=== PATIENT | male | born 1950 | race Caucasian/White ===

== ENCOUNTER 2019-01-15 17:47 | Emergency (ER) | payer MEDICARE ==
--- NOTE | 2019-01-15 17:53 | UC ---
HPI Febrile Illness - HPI Summary HPI Summary: Patient is a 68 year old male, who present today to the urgent care with fever for past 6 days. 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 Next 2 days he was completely asymptomatic and developed some lesions on his chin on Wednesday and had a MAXIMUM TEMPERATURE of 100.9F yesterday. He also reports having fatigue and muscle aches. Denies any sore throat or ear problems. Denies any cough chest pain or shortness of breath . Denies any abdominal pain , nausea or vomiting , diarrhea or constipation. No urinary symptoms. He has been outside a lot and at the camp and he does not recall any specific tick bite and he does get checked for skin time to time by his as well. Lesions are mainly noted on the chin and one on the left corner of the mouth. There are 4 lesions which have not changed in size, some itching and minimal pain. No drainage reported. He has been using hydrocortisone topically without any improvement - History of Current Complaint Time Seen by Provider: 01/15/19 17:51 Hx Obtained From: Patient - Allergy/Home Medications Allergies/Adverse Reactions: Allergies Allergy/AdvReac Type Severity Reaction Status Date / Time amoxicillin Allergy See Comment Verified 01/15/19 18:01 Home Medications: Home Medications Calcitriol 100 gm TP 01/15/19 [History] Ibuprofen 200 mg PO 01/15/19 [History] Sildenafil Citrate [Viagra] 100 mg PO EVERY OTHER DAY 01/15/19 [History Confirmed 01/15/19] PMH/Surg Hx/FS Hx/Imm Hx - Additional Past Medical History Additional PMH: Past Medical History : Psoriasis, prostrate cancer Past Surgical History: Prostatectomy in August 2018 Family History : non contributory Social History : Weekly alcohol, non smoker, no drug use. 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 Previously Healthy: Yes - Family History Known Family History: Positive: Non-Contributory Review of Systems All Other Systems Reviewed And Are Negative: Yes Constitutional: Positive: Fever, Fatigue Skin: Positive: Rash - On the chin Eyes: Positive: Negative ENT: Positive: Negative Respiratory: Positive: Negative Cardiovascular: Positive: Negative Gastrointestinal: Positive: Negative Genitourinary: Positive: Negative Motor: Positive: Negative Neurovascular: Positive: Negative Musculoskeletal: Positive: Negative Neurological: Positive: Negative Is Patient Immunocompromised?: No Physical Exam - Summary Physical Exam Summary: Physical Exam: Const: Appears well. No signs of apparent distress present. Alert and oriented x 3. Musculo: Walks with a normal gait. Head/Face: Atraumatic, normocephalic on inspection. Eyes: EOMI and PERRLA in both eyes. Conjunctivae clear. No discharge noted ENT: Hearing normal, TM normal appearing bilaterally, non bulging , non erythematous . No tenderness on palpation / manipulation of Tragus. No mastoid tenderness. No tenderness to palpation on maxillary and frontal sinus. mild pharyngeal erythema but no exudates . Uvula is midline. No cervical or submandibular lymphadenopathy noted. Respiratory: Respirations are unlabored. Lungs clear to auscultation bilaterally, no wheezing , rhonchi or rales noted . CVS: Regular rate and Rhythm, S1S2 normal , no murmurs identified. Extremities: Peripheral circulation is grossly normal. Pulses 2+ Abdomen : Soft non tender , nondistended , Bowel sounds present . No guarding , rebound tenderness or rigidity noted. Skin: He does have psoriasis lesions on the knee. Lesion on chin: Erythematous , minimal tender, 4 mainly noted on the chin and one on the left corner of the mouth. measuring upto 1 cm . No drainage noted but there is honey crusting noted. Neuro: Cranial nerves II to XII intact, motor and sensory intact. DTR Intact bilaterally. Mood is normal. Affect is normal. GCS: 15 Triage Information Reviewed: Yes Vital Signs Reviewed: Yes Course/Dx - Course Course Of Treatment: During the visit today, we obtained lab work - blood work and cultures including viral and the Gram stain/culture of the lesion at the corner of his mouth on the left side. Lesions can be secondary to impetigo versus herpetic lesions . Fever can be due to viral illness. We'll also test for Lyme disease. Plan to presumptively treat him with Bactrim and acyclovir . He was given the first dose of both the medications here and rest was prescribed to the pharmacy.. He will be informed of any lab results that are abnormal. He'll follow with his primary care doctor in 2-3 days. Patient expressed understanding . - Diagnoses Provider Diagnosis: Impetigo, Herpes labialis, Fever Discharge - Sign-Out/Discharge Documenting (check all that apply): Patient Departure All imaging exams completed and their final reports reviewed: No Studies - Discharge Plan Condition: Stable Disposition: HOME Prescriptions: Acyclovir 400 mg PO TID 10 Days #30 capsule Sulfamethox/Trimethoprim DS* [Bactrim DS 800/160 TAB*] 1 tab PO BID 10 Days #19 tab Patient Education Materials: Lyme Disease (ED), Impetigo (ED), Oral Herpes Simplex Virus Infections (ED) Referrals: Prince Harvey DO [Primary Care Provider] - 3 Days Additional Instructions: Please start taking the medication as prescribed to the pharmacy . Follow up with your primary care doctor in 3 days Patients blood pressure slightly high in Urgent care today , plan follow up with PCP for better control Return to Urgent care / ER if symptoms get worse. - Billing Disposition and Condition Condition: STABLE Disposition: Home
[2019-01-15] MEDS ORDERED: Sulfamethox/Trimethoprim DS 800/160* TAB PO ONE (19:01)
[2019-01-15] MEDS ORDERED: Acyclovir* 200 MG CAP PO ONE (19:02)
[2019-01-15 23:23] VITALS: BP 138/77
[2019-01-16 13:50] LABS: Hematocrit 40 % (42-52); Hemoglobin 13.5 g/dL (14.0-18.0); Mean Corpuscular HGB Conc 34 g/dL (31-36); Mean Corpuscular Hemoglobin 32 pg (27-31); Mean Corpuscular Volume 95 fL (80-94); Mean Platelet Volume 10.7 fL (7.4-10.4); Platelet Count 186 10^3/uL (150-450); Red Blood Count 4.17 10^6 /uL (4.18-5.48); Red Cell Distribution Width 13 % (10-15); White Blood Count 16.9 10^3/uL (3.5-10.8)
[2019-01-16 14:07] LABS: Albumin 3.9 g/dL (3.2-5.2); Albumin/Globulin Ratio 1.2 (1-3); Calcium 9.4 mg/dL (8.6-10.3); EGFR African American 125.7 (>60); EGFR Non-African American 103.9 (>60); Globulin 3.3 g/dL (2-4); Potassium 4.1 mmol/L (3.5-5.0); Total Bilirubin 0.8 mg/dL (0.2-1.0); Total Protein 7.2 g/dL (6.4-8.9)
[2019-01-16 14:33] LABS: ABS Basophils 0.1 10^3/ul (0-0.2); ABS Eosinophils 0.1 10^3/ul (0-0.6); ABS Lymphocytes 0.9 10^3/ul (1.0-4.8); ABS Monocytes 1.4 10^3/ul (0-0.8); ABS Neutrophils 14.3 10^3/ul (1.5-7.7); Eosinophil % 0.7 %; Lymphocyte % 5.5 %; Nucleated Red Blood Cells % 0.1
--- NOTE | 2019-01-16 16:42 | UC ---
- Progress Note Progress Note: Elevated WBC with shift. Based on visit note, appears he did not have a discernable cause of his fever for 6 days. There were some facial lesions noted, but I am doubtful that these are the cause of his leukocytosis. He was placed on Bactrim and acyclovir, if he is completely asymptomatic and afebrile today; no change and f/u with PCP tomorrow. -- If he is still having fevers and is symptomatic, recommend to go to the ED today for further evaluation of his fever of unknown origin with elevated white count. Course/Dx - Diagnoses Provider Diagnoses: Impetigo, Herpes labialis, Fever Discharge - Sign-Out/Discharge Documenting (check all that apply): Post-Discharge Follow Up All imaging exams completed and their final reports reviewed: No Studies - Discharge Plan Condition: Stable Disposition: HOME Prescriptions: Acyclovir 400 mg PO TID 10 Days #30 capsule Sulfamethox/Trimethoprim DS* [Bactrim DS 800/160 TAB*] 1 tab PO BID 10 Days #19 tab Patient Education Materials: Lyme Disease (ED), Impetigo (ED), Oral Herpes Simplex Virus Infections (ED) Referrals: Prince Harvey DO [Primary Care Provider] - 3 Days Additional Instructions: Please start taking the medication as prescribed to the pharmacy . Follow up with your primary care doctor in 3 days Patients blood pressure slightly high in Urgent care today , plan follow up with PCP for better control Return to Urgent care / ER if symptoms get worse. - Billing Disposition and Condition Condition: STABLE Disposition: Home
--- NOTE | 2019-01-17 08:05 | UC ---
- Progress Note Progress Note: MRSA neg staph neg on bactrim no change - await sensitivity Course/Dx - Diagnoses Provider Diagnoses: Impetigo, Herpes labialis, Fever Discharge - Sign-Out/Discharge Documenting (check all that apply): Post-Discharge Follow Up All imaging exams completed and their final reports reviewed: No Studies - Discharge Plan Condition: Stable Disposition: HOME Prescriptions: Acyclovir 400 mg PO TID 10 Days #30 capsule Sulfamethox/Trimethoprim DS* [Bactrim DS 800/160 TAB*] 1 tab PO BID 10 Days #19 tab Patient Education Materials: Lyme Disease (ED), Impetigo (ED), Oral Herpes Simplex Virus Infections (ED) Referrals: Prince Harvey DO [Primary Care Provider] - 3 Days Additional Instructions: Please start taking the medication as prescribed to the pharmacy . Follow up with your primary care doctor in 3 days Patients blood pressure slightly high in Urgent care today , plan follow up with PCP for better control Return to Urgent care / ER if symptoms get worse. - Billing Disposition and Condition Condition: STABLE Disposition: Home
[2019-01-18 00:40] LABS: Herpes Source lesion on mouth
--- NOTE | 2019-01-18 07:24 | UC ---
- Progress Note Progress Note: Laboratory results come back from January 15, 2019 with the HSV 1 from a lesion on the mouth being positive HSV-2 was negative. VZV is still pending. Nursing note from yesterday after the patient was called by nursing indicated the patient was afebrile and feeling better. He also had an elevated white blood cell count 16,000. It's unlikely that the herpes lesion on the mouth was the cause of the fever. He's being appropriately treated with acyclovir for the herpes. Nursing to call patient inform him of the results of the positive HSV. Also if the patient continues to feel well he can follow-up his primary care doctor however if he's getting sick again and having fevers and not feeling well but he needs to be reevaluated in the emergency department. Course/Dx - Diagnoses Provider Diagnoses: Impetigo, Herpes labialis, Fever Discharge - Sign-Out/Discharge Documenting (check all that apply): Patient Departure All imaging exams completed and their final reports reviewed: No Studies - Discharge Plan Condition: Stable Disposition: HOME Prescriptions: Acyclovir 400 mg PO TID 10 Days #30 capsule Sulfamethox/Trimethoprim DS* [Bactrim DS 800/160 TAB*] 1 tab PO BID 10 Days #19 tab Patient Education Materials: Lyme Disease (ED), Impetigo (ED), Oral Herpes Simplex Virus Infections (ED) Referrals: Prince Harvey DO [Primary Care Provider] - 3 Days Additional Instructions: Please start taking the medication as prescribed to the pharmacy . Follow up with your primary care doctor in 3 days Patients blood pressure slightly high in Urgent care today , plan follow up with PCP for better control Return to Urgent care / ER if symptoms get worse. - Billing Disposition and Condition Condition: STABLE Disposition: Home
[2019-01-18 18:23] LABS: Varicella Zoster Result Negative (Negative); Varicella Zoster Source lesion on mouth
== END 2019-01-15 19:21 | disposition home or self-care (01) ==
LOC: UCEAST 17:47
DX: L01.00 Impetigo, unspecified (principal); B00.1 Herpesviral vesicular dermatitis; R50.9 Fever, unspecified; Z85.46 Personal history of malignant neoplasm of prostate
CPT/HCPCS: 36415; 80053; 85025; 86618; 87070; 87205; 87529; 87640; 87641; 87798; 99212; A9270-GY; G0463